=== PATIENT | female | born 1985 | race Caucasian/White ===

== ENCOUNTER 2021-01-20 08:15 | Day surgery (SDC) | payer SELFPAY ==
[2021-01-20] MEDS ORDERED: Scopolamine 1.5 mg/72 hour Patch ONE (09:41)
[2021-01-20] MEDS ORDERED: Ketorolac Tromethamine 30 MG/ML VIAL ONE (09:41)
[2021-01-20] MEDS ORDERED: Lidocaine 1% w/Epinephrine 1:100K 30 ML VIAL ONE (09:54)
[2021-01-20] MEDS ORDERED: Bupivacaine PF 0.5% 30 ML VIAL ONE (09:54)
[2021-01-20] MEDS ORDERED: Fentanyl 100 MCG/2 ML VIAL ONE (09:55)
[2021-01-20] MEDS ORDERED: Dexmedetomidine 200 MCG/2 ML VIAL ONE (09:55)
[2021-01-20] MEDS ORDERED: Glycopyrrolate 0.2 MG/ML 5 ML SYRINGE ONE (10:20)
[2021-01-20] MEDS ORDERED: Lidocaine 1% PF 5 ML VIAL ONE (10:20)
[2021-01-20] MEDS ORDERED: Rocuronium Bromide 10 MG/ML (10ML VIAL) ONE (10:20)
[2021-01-20] MEDS ORDERED: Succinylcholine 200 MG/10 ml SYRINGE FS ONE (10:20)
[2021-01-20] MEDS ORDERED: PROPOFOL 200 MG/20 ML VIAL ONE (10:20)
[2021-01-20] MEDS ORDERED: Dexamethasone 20 MG/5 ML VIAL ONE (10:20)
[2021-01-20] MEDS ORDERED: Ondansetron PF 4 MG/2 ML Vial ONE (10:20)
== END 2021-01-20 13:40 | disposition home or self-care (01) ==
LOC: SDC/OP 08:15
PROVIDERS: ATTEND Specialist
PROC: 0DTJ4ZZ Resection of Appendix, Percutaneous Endoscopic Approach (ICD-10-PCS; principal; 2021-01-20)
PROC: 0U514ZZ Destruction of Left Ovary, Percutaneous Endoscopic Approach (ICD-10-PCS; principal; 2021-01-20)
DX: N83.202 Unspecified ovarian cyst, left side (principal); K35.80 Unspecified acute appendicitis; K66.1 Hemoperitoneum; K66.0 Peritoneal adhesions (postprocedural) (postinfection); F17.210 Nicotine dependence, cigarettes, uncomplicated; Z98.51 Tubal ligation status
CPT/HCPCS: 88304; J1100; J1885; J2405; J2704; J3010; S0020